=== PATIENT | male | born 1995 | race African-American/Black ===

== ENCOUNTER 2017-12-25 23:08 | Emergency (ER) | payer OTHER ==
[~2017-12-25] VITALS: Ht 172.7 cm; Wt 77.1 kg
[2017-12-26] MEDS ORDERED: IBUPROFEN 800 MG TAB PO ONE (02:15)
[2017-12-26 05:05] VITALS: BP 111/54
== END 2017-12-26 02:44 | disposition home or self-care (01) ==
LOC: ER 23:14
DX: M25.472 Effusion, left ankle (principal)
CPT/HCPCS: 73610